=== PATIENT | female | born 1965 | race Caucasian/White ===

== ENCOUNTER → 2017-06-18 08:19 | Outpatient (CLI) | payer OTHER, SELFPAY ==
--- NOTE | 2017-06-18 08:18 | RAD_ITS ---
STUDY: X-RAY - LUMBOSACRAL SPINE REASON FOR EXAM: Female, 52 years old. Low back pain TECHNIQUE: 6 view(s) of the lumbosacral spine were obtained including flexion and extension. COMPARISON: 07/04/2016 FINDINGS: Normal lumbar lordosis. There is no substantial scoliosis. There is normal alignment of the vertebrae. With flexion and extension, there is adequate motion and no subluxations. Normal vertebral bodies and endplates. Stable moderate narrowing of the disc at L5-S1. All other levels unremarkable. Normal bilateral sacral ala, sacroiliac joints, and visualized sacrum. There is atherosclerotic calcification of the abdominal aorta without a demonstrated aneurysm. RAD/L/S Spine Comp/w Bending Views IMPRESSION: Stable degenerative changes of the disc at L5-S1. No acute abnormality. Electronically Signed: Emil Torres MD at 15:13 EDT , Service support ,
[2017-06-18 10:35] LABS: Erythrocyte Sedimentation Rate 12 mm/hr (0-30)
[2017-06-18 10:40] LABS: Hemoglobin A1c 6.5 % (4.2-6.3)
[2017-06-18 11:04] LABS: ALB/GLOB Ratio 1.1 RATIO (0.9-2.4); AST(SGOT) 14 U/L (15-37); Alanine Aminotransfer ALT/SGPT 25 U/L (13-56); Albumin, Serum 4.2 g/dL (3.2-5.0); Alkaline Phosphatase 95 U/L (45-117); Anion Gap 9 (5-15); BUN 12 mg/dL (7-18); BUN/Creat Ratio 15.4 RATIO (10-20); Calcium,Total 9.4 mg/dL (8.5-10.1); Chloride 105 mmol/L (98-107); Cholesterol 227 mg/dL (200); Creatinine, Serum 0.78 mg/dL (0.55-1.02); EST Glomerular Filtration Rate 82 mL/min (>60); Est Glom Filt Rate - Afr Amer 99 mL/min (>60); Globulin 3.7 g/dL (2.2-4.2); Glucose 131 mg/dL (74-106); High Density Lipoprotein 34 mg/dL; Potassium 4.1 mmol/L (3.5-5.1); Protein, Total 7.9 g/dL (6.4-8.2); Rheumatoid Factor < 10.0 IU/mL (<15); Sodium Level 141 mmol/L (136-145); Thyroid Stim Hormone (TSH) 1.63 uIU/mL (0.358-3.74); Triglycerides 237 mg/dL; Very Low Density Lipoprotein 47 mg/dL (5-40)
[2017-06-19 14:33] LABS: ANTINUCLEAR ANTIBODIES DIRECT Negative (Negative)
== END ==
PROVIDERS: Family Provider Family Medicine; PCP Family Medicine; Visit Provider Orthopaedic Surgery
DX: M54.5 Low back pain (principal); M25.40 Effusion, unspecified joint; R73.03 Prediabetes; E78.1 Pure hyperglyceridemia; R00.2 Palpitations
CPT/HCPCS: 36415; 72114; 80053; 80061; 83036; 84443; 85652; 86038; 86431

== ENCOUNTER → 2017-11-11 09:11 | Outpatient (CLI) | payer BC, SELFPAY ==
--- NOTE | 2017-11-11 09:15 | RAD_ITS ---
STUDY: X-RAY - PELVIS AND BILATERAL HIPS REASON FOR EXAM: Female, 52 years old. Bilateral hip pain, right side more severe than left. TECHNIQUE: Radiological exam, hip, bilateral, with pelvis when performed; 3-4 views COMPARISON: None. FINDINGS: There is a non-specific bowel gas pattern. Normal visualized soft tissue structures. Normal bilateral iliac wings, sacroiliac joints and visualized sacrum. Normal bilateral superior and inferior pubic rami. There are degenerative changes of the left pubic symphysis with sclerosis. Normal bilateral ischial tuberosities. Normal visualized right femoral head. Normal right acetabulum. Normal right hip joint. Normal visualized left femoral head. Normal left acetabulum. Normal left hip joint. RAD/Hips B/L min 2 views w/ Pelvis IMPRESSION: Mild degenerative changes of the left symphysis pubis. The left and right hips appear within normal limits. Electronically Signed: João Leonardo MD at 19:54 EDT , Service support ,
== END ==
PROVIDERS: Family Provider Family Medicine; PCP Family Medicine; Visit Provider Anesthesiology Pain Medicine
DX: M25.552 Pain in left hip (principal); M25.551 Pain in right hip
CPT/HCPCS: 73521

== ENCOUNTER → 2017-12-03 07:47 | Outpatient (CLI) | payer BC, SELFPAY ==
[2017-12-03 07:55] VITALS: PULSE 105; PULSE 108; PULSE 109; PULSE 111; PULSE 113; PULSE 114; PULSE 90; PULSE 91; O2SAT 96; O2SAT 97; O2SAT 98
--- NOTE | 2017-12-03 13:29 | PCM.PSN.6M ---
PSN 6 Minute Walk Test - 6 Minute Walk Test 6 Minute Walk Test: 6 Minute Walk Test PSN:6-Minute Walk Test Start: 12/03/17 08:09 Freq: Status: Active Protocol: [id number] Document 12/03/17 07:55 [facility] [place] (Rec: 12/03/17 08:14 [facility] [place] [id number]) 6 Minute Walk Test Date Performed 12/03/17 Time Performed 07:55 Height 5 ft Weight: 86.183 kg Weight in Pounds 190.[address]: Jonas Mccain Assistive device used: None Pre-test Oxygen Delivery Method Room Air Pulse Ox (%) 98 Pulse Rate (60-100 beats/min) 91 Dyspnea Jessica Scale (0-10) 1 Exertion Jessica Scale (6-20) 6 1st minute Oxygen Delivery Method Room Air Pulse Ox (%) 97 Pulse Rate (60-100 beats/min) 111 H Number of Rests Taken 0 2nd minute Oxygen Delivery Method Room Air Pulse Ox (%) 97 Pulse Rate (60-100 beats/min) 105 H Number of Rests Taken 0 3rd minute Oxygen Delivery Method Room Air Pulse Ox (%) 96 Pulse Rate (60-100 beats/min) 109 H Number of Rests Taken 0 4th minute Oxygen Delivery Method Room Air Pulse Ox (%) 96 Pulse Rate (60-100 beats/min) 113 H Number of Rests Taken 0 5th minute Oxygen Delivery Method Room Air Pulse Ox (%) 97 Pulse Rate (60-100 beats/min) 108 H Number of Rests Taken 0 6th minute Oxygen Delivery Method Room Air Pulse Ox (%) 96 Pulse Rate (60-100 beats/min) 114 H Number of Rests Taken 0 Post-test Oxygen Delivery Method Room Air Pulse Ox (%) 98 Pulse Rate (60-100 beats/min) 90 Dyspnea Jessica Scale (0-10) 2 Exertion Jessica Scale (6-20) 12 Number of Rests Taken 0 Full Laps Walked 20 Partial Lap, Number of Tiles Walked 40 Total Distance Walked (ft) 1220 - Interpretation Interpretation: The patient was able to ambulate 1220 feet over the course of 6 minutes on room air with no significant desaturation. Patient did have elevation in heart rate to as high as 114 bpm. These findings are consistent with deconditioning. - Recommendations Recommendations: No supplemental oxygen is indicated at this time.
== END ==
PROVIDERS: Family Provider Family Medicine; PCP Family Medicine; Visit Provider Internal Medicine Critical Care Medicine
DX: R06.09 Other forms of dyspnea (principal)
CPT/HCPCS: 94618

== ENCOUNTER → 2017-12-16 07:40 | Outpatient (CLI) | payer BC, SELFPAY ==
--- NOTE | 2017-12-16 13:13 | PFT ---
INTRODUCTION: The patient is a 52-year-old female that presents for pulmonary function testing secondary to a diagnosis of dyspnea on exertion. Respiratory therapy reports good patient effort. Bronchodilators were used during testing. INTERPRETATION: Forced expiration spirometry demonstrates no evidence of a large airways obstructive ventilatory defect. There was no significant response to aerosolized bronchodilators. Spirograms are of good quality and plateau normally. Body plethysmography was performed and reveals a normal TLC and RV. Diffusing capacity by single breath CO is mildly reduced at 63% of predicted. IMPRESSION: These pulmonary function studies demonstrate only the presence of a mild reduction in diffusing capacity. There are no previous pulmonary function studies available for comparison.
== END ==
PROVIDERS: Family Provider Family Medicine; PCP Family Medicine; Visit Provider Internal Medicine Critical Care Medicine
DX: R06.09 Other forms of dyspnea (principal)
CPT/HCPCS: 94060; 94726; 94729

== ENCOUNTER → 2017-12-18 06:51 | Outpatient (CLI) | payer BC, SELFPAY ==
--- NOTE | 2017-12-18 06:53 | CT_ITS ---
STUDY: LOW DOSE CT LUNG CANCER SCREENING REASON FOR EXAM: Female, 52 years old. Wheezing. RADIATION DOSAGE (If Supplied By Facility): CTDIvol = ( 3.02 ) mGy, DLP = ( 93.27 ) mGycm TECHNIQUE: No contrast was administered. Low dose technique was utilized (average mAS-38 and kVp 120). 1.25 mm axial source images with a slice interval of 1.25-mm were reconstructed in lung windows. 2.5 mm axial source images with a slice interval of 2.5-mm were reconstructed in lung windows. 5.0 mm axial source images with a slice interval of 5.0-mm were reconstructed in soft tissue windows. Nodule measured using lung windows on PACS and/or independent workstation with automated measurement of minimum and maximum diameter. Nodule measurement reported as average diameter rounded to the nearest whole number. Growth is defined as an increase ins size of greater than 1.5 mm. COMPARISON: None. NODULES: No nodules are seen. Minimal increased linear markings in the anterior aspect of the left lower lobe suggestive of linear atelectasis and/or focal linear scarring. Aorta: Unremarkable. Coronary arteries: Coronary artery calcification. Mediastinal nodes: Scattered benign-appearing mediastinal lymph nodes. Other chest and abdominal findings: Multilevel disc space narrowing and spondylosis of the thoracic spine this is worse in the mid dorsal spine with subchondral sclerosis. CT/Low Dose CT Lung Screening IMPRESSION: Lung-RADS category 1 - Continue annual screening with LDCT in 12 months. IMPORTANT NOTES FOR USE: ACR Lung-RADS Version 1.0 Assessment Categories Release Date: August 03, 2013 Category: Coded 0-4 bases on nodule(s) with highest degree of suspicion. Negative screen is defined as categories 1 and 2; a positive screen is defined as categories 3 and 4. Category 3 and 4A nodules that are unchanged on interval CT should be coded as category 2, and individuals returned to screening in 12 months. Category 4X: Category 3 or 4 nodules with additional imaging findings that increase the suspicion of lung cancer, such as spiculation, GGN that doubles in size in 1 year, enlarged lymph notes, etc. Category Modifiers: S (significant finding unrelated to lung cancer) and C (prior history of treated lung cancer) may be added to the 0-4 Lung-RADS Electronically Signed: Leo Morse MD at 9:11 EDT Tel [phone], Service support ,
== END ==
PROVIDERS: Family Provider Family Medicine; PCP Family Medicine; Visit Provider Internal Medicine Critical Care Medicine
DX: R06.09 Other forms of dyspnea (principal); Z72.0 Tobacco use; Z12.2 Encounter for screening for malignant neoplasm of respiratory organs; Z87.891 Personal history of nicotine dependence
CPT/HCPCS: G0297

== ENCOUNTER → 2017-12-18 20:22 | Outpatient (CLI) | payer BC, SELFPAY | PROVIDERS: Family Provider Family Medicine; PCP Family Medicine; Visit Provider Internal Medicine Critical Care Medicine | DX: G47.33 Obstructive sleep apnea (adult) (pediatric) (principal) | CPT/HCPCS: 95811 ==

== ENCOUNTER → 2018-06-03 13:00 | Outpatient (CLI) | payer BC, SELFPAY ==
[2018-05-22 13:03] VITALS: BMI 33.4
== END ==
PROVIDERS: Family Provider Family Medicine; PCP Family Medicine; Referring Provider Internal Medicine Critical Care Medicine; Visit Provider Internal Medicine Critical Care Medicine
DX: G47.33 Obstructive sleep apnea (adult) (pediatric) (principal)
CPT/HCPCS: 98960; G0463

== ENCOUNTER → 2018-08-08 | Outpatient (CLI) | payer BC, SELFPAY ==
[2018-05-22 13:03] VITALS: BMI 33.4
== END | disposition home or self-care (01) ==
LOC: SL 13:10
PROVIDERS: Family Provider Family Medicine; PCP Family Medicine; Visit Provider Nurse Practitioner Acute Care
DX: G47.33 Obstructive sleep apnea (adult) (pediatric) (principal)

== ENCOUNTER 2018-08-10 12:15 | Emergency (ER) | payer BC, SELFPAY ==
[2018-05-22 13:03] VITALS: BMI 33.4
[2018-08-10 12:16] VITALS: BP 142/90; PULSE 101; RESP 19; TEMP 36.4; O2SAT 97; BMI 36.1
--- NOTE | 2018-08-10 12:46 | RAD_ITS ---
STUDY: X-RAY - RIGHT FOOT CLINICAL: Female, 53 years old. Painful heel. TECHNIQUE: 3 view(s) of the foot. COMPARISON: None. FINDINGS: Normal talus, calcaneus, and tarsal bones. Normal visualized subtalar, talonavicular, calcaneocuboid, tarsal and tarsometatarsal articulations. Normal metatarsi. There is mild degenerative arthrosis of the metatarsophalangeal joint of the hallux . Normal tibial and fibular sesamoid bones. Normal interphalangeal joint of the great toe. Normal phalanges of the great toe. Normal second through fifth metatarsophalangeal joints. Normal interphalangeal joints and phalanges of the lesser toes. The soft tissue structures are unremarkable. There is no demonstrated fracture. RAD/Foot min 3 Views IMPRESSION: Mild degenerative arthrosis. No demonstrated acute osseous changes. Electronically Signed: Alphonso Braswell MD at 13:24 EDT Tel , Service support ,
--- NOTE | 2018-08-10 12:47 | ED.VISSUMM ---
- ER Visit Summary Date of Service: 08/10/18 Chief Complaint: Right heel pain History of Present Illness: The patient is a 53 F history of chronic back pain under pain management. Also diabetic and hypertensive. Patient states she fell down a wheelchair ramp about 3 weeks ago. Had a recent pain injection in her lower back. Since her last 3 days she has had right heel pain. No prior foot surgery. Physical Examination: Well-appearing middle-aged female. Vital signs are stable afebrile. No distress. H EENT exam unremarkable. Atraumatic. C-spine nontender. Trachea midline. Lungs clear to auscultation bilaterally. Heart regular rhythm no murmur. Abdomen soft nontender normal bowel sounds no peritoneal signs. Extremities moves all 4. Neurovascularly intact. Is a small bruise on the inferior aspect medially of her right knee but has full flexion-extension of her right hip, right knee and right ankle. Dorsi plantar flexion intact. Achilles tendon intact. There is no effusion or swelling of the right knee. Ligaments are intact including the ACL and PCL. Also the MCL and LCL. She has normal DP pulse. She is able to wiggle all digits in her right foot. Normal cap refill. Normal touch sensation. No gross bony deformity. She has tenderness with squeezing of her heel. There is no redness or warmth. No bruising or swelling. Right foot is completely neurovascular intact. Lower extremities unremarkable. Neurologically she is awake and alert with no focal motor deficits. Test Results: Right foot x-ray 3 views was obtained shows shows no acute abnormality. Read by myself. No bony abnormality noted. No fracture or dislocation. Emergency Department Course and Treatment: Repeat exam unchanged. Treatment Plan: Ice to her heel. Tylenol Motrin for pain. Follow-up if not improving. Disposition: Discharge Impression: Acute right heel pain of uncertain etiology Status post fall Chronic pain management This note was generated with [employer] dictation software. It may contain incorrect words, spelling, and punctuation that were not noted in review of the chart prior to signing ED Disposition - Plan for ED Patient: Referrals: Darby Rivera [Primary Care Provider] -
--- NOTE | 2018-08-10 12:52 | ED.DCSUM_ITS ---
- ER Visit Summary Date of Service: 08/10/18 Chief Complaint: Right heel pain History of Present Illness: The patient is a 53 F history of chronic back pain under pain management. Also diabetic and hypertensive. Patient states she fell down a wheelchair ramp about 3 weeks ago. Had a recent pain injection in her lower back. Since her last 3 days she has had right heel pain. No prior foot surgery. Physical Examination: Well-appearing middle-aged female. Vital signs are stable afebrile. No distress. H EENT exam unremarkable. Atraumatic. C-spine nontender. Trachea midline. Lungs clear to auscultation bilaterally. Heart regular rhythm no murmur. Abdomen soft nontender normal bowel sounds no peritoneal signs. Extremities moves all 4. Neurovascularly intact. Is a small bruise on the inferior aspect medially of her right knee but has full flexion- extension of her right hip, right knee and right ankle. Dorsi plantar flexion intact. Achilles tendon intact. There is no effusion or swelling of the right knee. Ligaments are intact including the ACL and PCL. Also the MCL and LCL. She has normal DP pulse. She is able to wiggle all digits in her right foot. Normal cap refill. Normal touch sensation. No gross bony deformity. She has tenderness with squeezing of her heel. There is no redness or warmth. No bruising or swelling. Right foot is completely neurovascular intact. Lower extremities unremarkable. Neurologically she is awake and alert with no focal motor deficits. Test Results: Right foot x-ray 3 views was obtained shows shows no acute abnormality. Read by myself. No bony abnormality noted. No fracture or disloc ation. Emergency Department Course and Treatment: Repeat exam unchanged. Treatment Plan: Ice to her heel. Tylenol Motrin for pain. Follow-up if not improving. Disposition: Discharge Impression: Acute right heel pain of uncertain etiology Status post fall Chronic pain management This note was generated with [employer] dictation software. It may contain incorrect words, spelling, and punctuation that were not noted in review of the chart prior to signing ED Disposition - Plan for ED Patient: Referrals: Darby Rivera [Primary Care Provider] -
--- NOTE | 2018-08-10 13:15 | ED.DEP ---
ED Disposition - Plan for ED Patient: Disposition: Home or Assisted Living Instructions: ED Sprain Foot Referrals: Darby Rivera [Primary Care Provider] - 1 Week if not improving Additional Instructions: Ice to heal. Motrin and Tylenol for pain. Follow-up with your doctor if not improving. Your x-ray today was unremarkable.
== END 2018-08-10 13:31 | disposition home or self-care (01) ==
PROVIDERS: Emergency Provider Emergency Medicine; Family Provider Family Medicine; PCP Family Medicine
DX: M79.671 Pain in right foot (principal); G89.29 Other chronic pain; M54.9 Dorsalgia, unspecified; E11.9 Type 2 diabetes mellitus without complications; I10 Essential (primary) hypertension; Z72.0 Tobacco use; W10.2XXA Fall (on)(from) incline, initial encounter; Y93.01 Activity, walking, marching and hiking; Y92.89 Other specified places as the place of occurrence of the external cause; Y99.8 Other external cause status
CPT/HCPCS: 73630; 99283

== ENCOUNTER → 2018-09-23 | Outpatient (CLI) | payer BC, SELFPAY ==
--- NOTE | 2018-09-23 17:15 | RAD_ITS ---
HISTORY: fall couple months ago, right hip pain AP pelvis. 2 views of the right hip. Findings: Bilateral hip arthritis is mild with joint space narrowing. Cortices are intact. Bowel gas pattern is normal. Right hemipelvic phlebolith. No fractures. No dislocations. RAD/HIP, UNI W/ Pelvis 2-3 Views IMPRESSION: Mild bilateral hip arthritis. at 0234 Reported and signed by: Isauro Perry MD Electronically Signed: Isauro Perry MD at 2:33 EDT Tel , Service support ,
== END | disposition home or self-care (01) ==
LOC: RAD 17:09
PROVIDERS: Family Provider Family Medicine; PCP Family Medicine; Referring Provider Anesthesiology Pain Medicine; Visit Provider Anesthesiology Pain Medicine
DX: M25.551 Pain in right hip (principal)
CPT/HCPCS: 73502

== ENCOUNTER → 2019-02-04 | Outpatient (CLI) | payer BC, SELFPAY ==
[2018-11-17 13:25] VITALS: BMI 36.1
--- NOTE | 2019-02-04 14:33 | BI_ITS ---
MAMMOGRAPHY - BILATERAL SCREENING REASON FOR EXAM: Female, 53 years old. Routine annual screening examination. PERTINENT HISTORY: Aunt with breast cancer. Remote right excisional breast biopsies. TECHNIQUE: Digital bilateral breast rolf (3D mammographic acquisition) in the CC and MLO projections. 2-D mediolateral oblique (MLO) and craniocaudad (CC) views of both breasts were obtained. CAD: Full Field Digital Mammography with Computer Added Detection was performed. COMPARISON: Comparison is made with prior examination of August 27, 2016 and May 27, 2015. FINDINGS: Breast Composition: The breasts are almost entirely fatty. There are no dominant masses or suspicious calcifications. Stable small benign-appearing bilateral axillary lymph nodes. No other significant abnormalities are identified. There has been no significant change since the prior study. BI/SCREEN MAMM (CAD) W/ROLF BILAT IMPRESSION: Stable bilateral screening mammogram. Yearly follow-up mammogram recommended. (A) ASSESSMENT CATEGORY: BIRADS Category 2: Benign. A letter regarding these results will be sent to the patient by the facility within 30 days. Approximately 10% of breast cancers are not detected by mammography. A normal mammogram should not delay biopsy of a clinically suspicious abnormality. [id number] Electronically Signed: Leo Morse, at 15:38 EDT , Service support ,
== END | disposition home or self-care (01) ==
PROVIDERS: Family Provider Family Medicine; PCP Family Medicine; Referring Provider Family Medicine; Visit Provider Family Medicine
DX: Z12.31 Encounter for screening mammogram for malignant neoplasm of breast (principal)
CPT/HCPCS: 77063; 77067

== ENCOUNTER → 2019-11-10 07:08 | Outpatient (CLI) | payer BC, SELFPAY ==
[2019-11-02 08:27] VITALS: BMI 34.2
--- NOTE | 2019-11-10 07:11 | CT_ITS ---
STUDY: LOW DOSE CT LUNG CANCER SCREENING REASON FOR EXAM: Female, 54 years old. TOBACCO ABUSE, LUNG SCREEN, 1/2 PPD X 40+ YRS RADIATION DOSAGE (If Supplied By Facility): CTDIvol = ( 3.02 ) mGy, DLP = ( 95.15 ) mGycm TECHNIQUE: No contrast was administered. Low dose technique was utilized (average mAS-38 and kVp 120). 1.25 mm axial source images with a slice interval of 1.25-mm were reconstructed in lung windows. 2.5 mm axial source images with a slice interval of 2.5-mm were reconstructed in lung windows. 5.0 mm axial source images with a slice interval of 5.0-mm were reconstructed in soft tissue windows. Nodule measured using lung windows on PACS and/or independent workstation with automated measurement of minimum and maximum diameter. Nodule measurement reported as average diameter rounded to the nearest whole number. Growth is defined as an increase ins size of greater than 1.5 mm. COMPARISON: Comparison is made with prior study dated 12/18/2017. NODULES: There is a 2.1 mm noncalcified nodule in the anterior aspect of the left upper lobe as seen on axial image #68. A 1.5 mm noncalcified nodule is also seen along the anterior aspect of the left upper lobe as seen on axial image #84. Emphysema: Endobronchial lesion: Aorta: Minimal calcific plaque at the level of the aortic arch. Coronary arteries: Coronary artery calcification. Mediastinal nodes: Scattered small benign-appearing mediastinal lymph nodes. Other chest and abdominal findings: Degenerative changes of the thoracic and lumbar spine. CT/Low Dose CT Lung Screening IMPRESSION: Lung-RADS category 2 - Continue annual screening with LDCT in 12 months. IMPORTANT NOTES FOR USE: ACR Lung-RADS Version 1.0 Assessment Categories Release Date: August 03, 2013 Category: Coded 0-4 bases on nodule(s) with highest degree of suspicion. Negative screen is defined as categories 1 and 2; a positive screen is defined as categories 3 and 4. Category 3 and 4A nodules that are unchanged on interval CT should be coded as category 2, and individuals returned to screening in 12 months. Category 4X: Category 3 or 4 nodules with additional imaging findings that increase the suspicion of lung cancer, such as spiculation, GGN that doubles in size in 1 year, enlarged lymph notes, etc. Category Modifiers: S (significant finding unrelated to lung cancer) and C (prior history of treated lung cancer) may be added to the 0-4 Lung-RADS Electronically Signed: Leo Morse, at 8:44 EDT , Service support ,
== END ==
PROVIDERS: PCP Family Medicine; Referring Provider Nurse Practitioner Acute Care; Visit Provider Nurse Practitioner Acute Care
DX: F17.210 Nicotine dependence, cigarettes, uncomplicated (principal)
CPT/HCPCS: G0297

== ENCOUNTER → 2019-11-12 07:08 | Outpatient (CLI) | payer BC, SELFPAY ==
[2019-11-02 08:27] VITALS: BMI 34.2
--- NOTE | 2019-11-12 15:22 | PFTCOMP ---
COMPLETE PULMONARY FUNCTION TEST INTERPRETATION Brief HPI: Patient is a 54 year old female, currently under the care of Darby Real, who presents to [facility] for complete pulmonary function tests secondary to diagnosis of dyspnea. Respiratory therapist reports good effort and reproducible results. Interpretation: Forced expiration spirometry shows no large airways obstructive ventilatory defect with an FEV1 of 89% predicted. There is no significant bronchodilator response by strict ATS criteria. Spirograms are of good quality and plateau slowly, indicating slowly emptying areas of the lungs. The respiratory flow volume loop shows decreased expiratory flow rates at high lung volumes consistent with small airways obstruction. Lung volumes by body plethysmography show a normal total lung capacity at 4.84 L, 117% predicted. All other lung volumes are within normal limits. Diffusion capacity by carbon monoxide is decreased at 58% predicted. The airway resistance is normal. Compared to previous pulmonary function tests from 12/16/2017, there has been significant worsening in spirometry and DLCO. Impression: Isolated reduction diffusion capacity consistent with a pulmonary vascular disorder. There has been worsening compared to 2018.
== END ==
LOC: PSN 07:11
PROVIDERS: PCP Family Medicine; Referring Provider Nurse Practitioner Acute Care; Visit Provider Nurse Practitioner Acute Care
DX: R06.09 Other forms of dyspnea (principal)
CPT/HCPCS: 94060; 94726; 94729

== ENCOUNTER 2021-07-06 13:35 | Outpatient (CLI) | payer OTHER, SELFPAY ==
--- NOTE | 2021-07-06 13:45 | RAD_ITS ---
STUDY: X-RAY - LUMBAR SPINE REASON FOR EXAM: Female, 56 years old. Radiating low back pain TECHNIQUE: 3 view(s) of the lumbar spine were obtained. COMPARISON: None FINDINGS: Normal lumbar lordosis. There is no substantial scoliosis. There is a normal alignment of the vertebrae from L1 to L5. There is a grade 1 spondylolisthesis at L5/S1.. There is multilevel endplate spondylosis of the lumbar vertebrae. Mild disc space narrowing throughout the lumbar spine. There is no demonstrated fracture. There is atherosclerotic calcification of the abdominal aorta without a demonstrated aneurysm. RAD/Lumbar Spine 2 or 3 Views IMPRESSION: Degenerative changes of the spine, as detailed above. Electronically Signed: Emory Jiménez MD at 17:07 EDT ,
== END 2021-07-06 23:59 | disposition home or self-care (01) ==
LOC: RAD 13:39
PROVIDERS: PCP Student in an Organized Health Care Education/Training Program; Referring Provider Anesthesiology Pain Medicine; Visit Provider Anesthesiology Pain Medicine
DX: M54.16 Radiculopathy, lumbar region (principal)
CPT/HCPCS: 72100

== ENCOUNTER → 2021-09-14 | Outpatient (CLI) | payer OTHER, SELFPAY ==
--- NOTE | 2021-09-14 12:16 | MRI_ITS ---
STUDY: MR Spine Lumbar W/O Contrast 09/14/2021 4:39 PM REASON FOR EXAM: Female, 56 years old. Back pain RT LEG WEAKNESS TECHNIQUE: MR Spine Lumbar W/O Contrast Standardized fat and water weighted pulse sequences were obtained. COMPARISON: Aug 16 2016 7:54am FINDINGS: T12-L1: Normal endplates. Normal disc height, hydration and morphology. Normal bilateral facet joints. Normal central canal and bilateral lateral recesses. Normal bilateral intervertebral neural foramina. Normal lumbar lordosis. There is no substantial scoliosis. Normal conus medullaris that terminates at the L1. L1-2: Loss of intervertebral disc height. There is endplate spondylosis of the vertebral body. There is bilateral facet arthropathy. Central disc herniation measuring 3mm. Discogenic endplate changes. L2-3: Normal endplates. Normal disc height, hydration and morphology. Normal bilateral facet joints. Normal central canal and bilateral lateral recesses. Normal bilateral intervertebral neural foramina. L3-4: Normal endplates. Normal disc height, hydration and morphology. Normal bilateral facet joints. Normal central canal and bilateral lateral recesses. Normal bilateral intervertebral neural foramina. L4-5: Loss of intervertebral disc height. There is endplate spondylosis of the vertebral body. There is bilateral facet arthropathy. Right disc herniation extends into the right neural foramina causing right foraminal stenosis. Compression of exiting nerve root on the right. L5-S1: Loss of intervertebral disc height. There is endplate spondylosis of the vertebral body. There is bilateral facet arthropathy. Bilateral neural foraminal stenosis. Compression of exiting nerve roots. Central disc herniation. Normal visualized sacral ala. MRI/Spine Lumbar (Routine) IMPRESSION: Multilevel degenerative changes, as described above. L1-2: Central disc herniation measuring 3mm. This is new. L5-S1: Bilateral neural foraminal stenosis. Compression of exiting nerve roots. Central disc herniation. L4-5: Right disc herniation extends into the right neural foramina causing right foraminal stenosis. Compression of exiting nerve root on the right. Electronically Signed: Rene eHrnandez MD at 16:45 EDT ,
== END | disposition home or self-care (01) ==
LOC: MRI 11:59
PROVIDERS: PCP Student in an Organized Health Care Education/Training Program; Referring Provider Anesthesiology Pain Medicine; Visit Provider Anesthesiology Pain Medicine
DX: R53.1 Weakness (principal)
CPT/HCPCS: 72148

== ENCOUNTER 2021-09-15 07:30 | Outpatient (RCR) | payer OTHER, SELFPAY ==
--- NOTE | 2021-08-18 08:19 | HP.PTEVAL_ITS ---
Patient's Visit Information LUIS SIDDIQUI is a 56 year old F referred to Physical Therapy by Dr. Erica Lemons MD with a diagnosis of RADICULOPATHY ,LUMBAR. Date of Evaluation: 08/18/21 Physical Therapist: Khoa Granda, PT, Cert MDT, OCS - Visit Plan Frequency: 2x /Week Duration: 4 Weeks Plan: PT INTERVETIONS MODALTIES FOR PAIN PROGRESS TO GRADED DLS ,POSTURAL EX'S AND LUMBAR ROM AND ACTIVITY MODIFICATION/TRAINING - Subjective This 56 y/o female presents to physical therapy with lumbar radiculopathy. Patient has had lumbar pain many years ,but had a episode for lumbar radiculopathy. In April patient had episode sliding on ice which aggravated symptoms. Seen Family ,seen chiropractor ,then seen DR Maldonado had epidural injection which helped sciatica pain but continues to have lateral hip pain. Dr wanted to do MRI but need PT . Located right lumbar lateral hip ,thigh to knee . Described as a ache/sharp . Patient has paresthesia/tingling in leg right. Aggravating factors bending ,lifting ,carrying ,walking and sitting. Alleviating factors none. MEDS- Mobic. Coughing/sneezing +. Bowel/bladder -. Patient has difficulty sleeping. Patient does have lumbar radiculopathy. Patient has had prior epidural injection 20 years. Patient has had no recent MRI . Last MRI over 10 years ago. Patient pain affects QOL and function. Patient is on heart monitor due to heart palpations/arrhythmia. SOCIAL: . 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 GAIT: reciprocal pattern. PALPTION: tender SI /LS right. SYMMTRIES: align. FLEXABILITY: hamstrings min tight. LUMBAR ROM: flexion min loss, extension min loss, side bending min loss. MMT: quads/hams 4/5,hip flexion 4-/5,ankle 5/5 - Special Tests Lumbar Standing: Flexion - Mechanical Response: No effect Lumbar Standing: Flexion - Symptoms During Testing: Increases Lumbar Standing: Flexion - Symptoms After Testing: No worse Lumbar Standing: Extension - Mechanical Response: No effect Lumbar Standing: Extension - Symptoms During Testing: Increases Lumbar Standing: Extension - Symptoms After Testing: No worse Lumbar Standing: Right Side Glides - Mechanical Response: No effect Lumbar Standing: Right Side [place] - Symptoms During Testing: No effect Lumbar Standing: Right Side [place] - Symptoms After Testing: No effect Lumbar Standing: Left Side [place] - Mechanical Response: No effect Lumbar Standing: Left Side [place] - Symptoms During Testing: No effect Lumbar Standing: Left Side [place] - Symptoms After Testing: No effect - Balance/Special Test Scores Oswestry Low Back Score: 28 - Goals Goal 1:: I with HEP FOR BACK Goal Time Frame: 4-6 Weeks Goal 2:: Patient to demonstrate 50% improvement with function and less back pain Goal Time Frame: 4-6 Weeks Goal 3:: Patient to improve lumbar ROM for 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 Goal Time Frame: 4-6 Weeks Goal 4:: Patient to improve back oswestry by 5 points to improve function Goal Time Frame: 4-6 Weeks Goal 5:: Patient to return to prior level of function with min limitations Goal Time Frame: 4-6 Weeks - Rehabilitation Potential Physical Therapy Diagnosis: This patient has lumbar radiculopathy with pain with positioning, motion testing , pain with general activity bending walking and standing which was a result on slipping on ice in Apr thus will need skilled PT Rehabilitation Potential: Good - Anticipated Interventions Patient/Client Instruction: Educate patient on: Condition, Plan of Care For the Purpose of:: To decrease pain, To increase ROM, To improve muscle performance and motor function, To improve ability to perform ADL's, To increase tolerance to activity/condition/position, To improve ability of physical actions for home/community/work/leisure, To improve health of tissue, To decrease soft tissue restriction, To increase flexibility/ROM, To prevent re-injury Therapeutic Exercise to Include: Strength training, Body mechanics, Postural training, Flexibilty training, Active ROM, Dynamic Lumbar Stabilization For the Purpose of:: To decrease pain, To increase ROM, To improve muscle performance and motor function, To improve ability to perform ADL's, To increase tolerance to activity/condition/position, To improve ability of physical actions for home/community/work/leisure, To improve health of tissue, To decrease soft tissue restriction, To increase flexibility/ROM, To prevent re-injury TENS: Yes IF ES: Yes Thermo therapy (hot pack): Yes Ultrasound (thermal/non thermal): Yes For the Purpose of:: To decrease pain, To increase ROM, To improve nutrient delivery to tissue, To increase oxygenation perfusion, To improve health of tissue, To decrease soft tissue restriction Thank you for the opportunity to evaluate your patient. For Medicare and Medicare HMO plans, please review the plan of care and approve it. It will need to be FAXED BACK to us at [phone] for Medicare purposes. For Medicare only, by signing this I certify the plan of care. Please let me know if there are questions or concerns regarding this plan of care. Physician Signatur e: Date:
--- NOTE | 2022-02-07 10:37 | HP.PTDCSUM ---
It has been my pleasure to treat LUIS SIDDIQUI referred by Dr. Erica Lemons MD, with the diagnosis of RADICULOPATHY ,LUMBAR for a total of 9 visit(s). Discharge Date: Please see the following information for a summary of their discharge status. Subjective: Patient had MRI multiple HNP in lumbar. Get back to DR Lemus for injecyions Right Back Pain Intensity (Out of 10): 6 Right Hip Pain Intensity (Out of 10): 5 % Improvement: 40 Objective/Function: POSTURE: mild forward. GAIT: reciprocal pattern. MMT: quads/hams/hip 4/5,4/5. 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 Thank you for the referral of this patient. Sincerely, Khoa Granda, PT, Cert MDT, OCS Balance/Gait/Functional tests - Balance/Special Test Scores Oswestry Low Back Score: 10
== END 2021-09-15 19:00 | disposition home or self-care (01) ==
LOC: PT 07:30
PROVIDERS: PCP Student in an Organized Health Care Education/Training Program; Referring Provider Anesthesiology Pain Medicine; Visit Provider Anesthesiology Pain Medicine
DX: M54.16 Radiculopathy, lumbar region (principal)
CPT/HCPCS: 97014; 97110; 97162; G0283

== ENCOUNTER → 2021-12-28 | Outpatient (CLI) | payer OTHER, SELFPAY ==
[2021-12-28 17:23] LABS: Amphetamine Urine VISTA NEGATIVE (<1000 ng/mL); Barbiturate Urine VISTA NEGATIVE (< 200 ng/mL); Benzodiazepine Urine VISTA NEGATIVE (< 200 ng/mL); Cocaine Urine VISTA NEGATIVE (< 300 ng/mL); Ecstacy Urine VISTA NEGATIVE (< 500 ng/mL); Methadone Urine VISTA NEGATIVE (< 300 ng/mL); PCP Urine VISTA NEGATIVE (< 25 ng/mL); THC Urine VISTA NEGATIVE (< 50 ng/mL); Vista UDS pH Range 6
== END | disposition home or self-care (01) ==
PROVIDERS: PCP Student in an Organized Health Care Education/Training Program; Referring Provider Anesthesiology Pain Medicine; Visit Provider Anesthesiology Pain Medicine
DX: F11.20 Opioid dependence, uncomplicated (principal)
CPT/HCPCS: 80307

== ENCOUNTER → 2022-02-14 | Outpatient (CLI) | payer OTHER, SELFPAY ==
[2022-02-14 10:38] LABS: Amphetamine Urine VISTA NEGATIVE (<1000 ng/mL); Barbiturate Urine VISTA NEGATIVE (< 200 ng/mL); Benzodiazepine Urine VISTA NEGATIVE (< 200 ng/mL); Cocaine Urine VISTA NEGATIVE (< 300 ng/mL); Ecstacy Urine VISTA NEGATIVE (< 500 ng/mL); Methadone Urine VISTA NEGATIVE (< 300 ng/mL); PCP Urine VISTA NEGATIVE (< 25 ng/mL); THC Urine VISTA NEGATIVE (< 50 ng/mL); Vista UDS pH Range 7
== END | disposition home or self-care (01) ==
PROVIDERS: PCP Student in an Organized Health Care Education/Training Program; Referring Provider Anesthesiology Pain Medicine; Visit Provider Anesthesiology Pain Medicine
DX: F11.20 Opioid dependence, uncomplicated (principal)
CPT/HCPCS: 80307

== ENCOUNTER → 2022-05-01 | Outpatient (CLI) | payer OTHER, SELFPAY ==
--- NOTE | 2022-05-01 10:17 | RAD_ITS ---
STUDY: X-RAY - CERVICAL SPINE REASON FOR EXAM: Female, 57 years old. NECK PAIN TECHNIQUE: 3 view(s) of the cervical spine were obtained. COMPARISON: None FINDINGS: Normal anterior atlantoaxial articulation. Normal odontoid process. Normal cervical lordosis. There is chronic wedging of C3 vertebral body.. There is narrowing at C3-4 and C4-5 disc spaces with endplate spurring.. The soft tissue structures are unremarkable. RAD/Cerv Spine 2 or 3 Views IMPRESSION: Mild spondylosis. No acute fracture or other significant bony pathology. Electronically Signed: Peter Camargo MD at 21:21 EST ,
--- NOTE | 2022-05-01 10:17 | RAD_ITS ---
STUDY: X-RAY - LUMBAR SPINE REASON FOR EXAM: Female, 57 years old. BACK PAIN TECHNIQUE: 3 view(s) of the lumbar spine were obtained. COMPARISON: None FINDINGS: Normal lumbar lordosis. Mild scoliosis or splinting secondary to muscle spasm.. Grade 1 spondylolisthesis at L5-S1. Mildly narrowed disc spaces at L1-2 and L2-3 with endplate spurring.. Surgical clips are seen in the right upper quadrant. Calcification of the aorta without evidence for aneurysm RAD/Lumbar Spine 2 or 3 Views IMPRESSION: Mild spondylosis and degenerative changes. No acute fracture or other significant bony pathology Electronically Signed: Peter Camargo MD at 21:42 EST ,
== END | disposition home or self-care (01) ==
LOC: RAD 10:13
PROVIDERS: PCP Student in an Organized Health Care Education/Training Program; Referring Provider Anesthesiology Pain Medicine; Visit Provider Anesthesiology Pain Medicine
DX: M50.30 Other cervical disc degeneration, unspecified cervical region (principal); M47.812 Spondylosis without myelopathy or radiculopathy, cervical region; M51.34 Other intervertebral disc degeneration, thoracic region
CPT/HCPCS: 72040; 72100

== ENCOUNTER → 2023-08-16 | Outpatient (CLI) | payer OTHER, SELFPAY ==
[2023-08-16 12:52] LABS: Erythrocyte Sedimentation Rate 3 mm/hr (0-30)
[2023-08-16 12:55] LABS: Absolute Lymphocyte Count 2.92 X10^3/uL (0.83-4.51); Absolute Neutrophil Count 5.6 X10^3/uL (2.0-7.7); Basophil# 0.06 X10^3/uL; Basophil% 0.6 % (0-1); Eosinophil# 0.14 X10^3/uL; Eosinophils% 1.5 % (0-5); Hematocrit 53.8 % (37-47); Hemoglobin 16.6 g/dL (12.0-15.0); Lymphocyte # 2.92 X10^3/ul (0.83-4.51); Lymphocyte % 30.6 % (19-41); Mean Corp Hgb Conc 30.9 g/dL (32-36); Mean Corpuscular Hgb 32.7 pg (27.0-32.0); Mean Corpuscular Volume 105.9 fL (81-99); Mean Platelet Vol. 8.6 fl (6.2-12.0); Monocyte# 0.75 X10^3/uL; Monocyte% 7.9 % (0-10); NRBC Flagged by Analyzer 0 % (0-5); Neutrophil # 5.63 X10^3/uL (2.7-7.7); Neutrophil % 58.9 % (47-70); Platelet Count 358 K/mm3 (150-450); RBC Distribution Width CV 12.8 % (11.6-14.6); RBC Distribution Width SD 50.6 fl (35.1-43.9); Red Blood Count 5.08 M/mm3 (4.2-5.4); White Blood Count 9.6 K/mm3 (4.4-11.0)
[2023-08-16 13:24] LABS: ALB/GLOB Ratio 1.2 RATIO (0.9-2.4); AST(SGOT) 12 U/L (15-37); Alanine Aminotransfer ALT/SGPT 28 U/L (13-56); Albumin, Serum 4.1 g/dL (3.2-5.0); Alkaline Phosphatase 102 U/L (45-117); Anion Gap 6 (5-15); BUN 13 mg/dL (7-18); CRP 5.16 mg/L (0.0-3.0); Calcium,Total 9.5 mg/dL (8.5-10.1); Chloride 107 mmol/L (98-107); Creatinine, Serum 0.72 mg/dL (0.55-1.02); EST Glomerular Filtration Rate 87 mL/min (>60); Est Glom Filt Rate - Afr Amer 106 mL/min (>60); Globulin 3.5 g/dL (2.2-4.2); Glucose 140 mg/dL (74-106); Potassium 3.9 mmol/L (3.5-5.1); Protein, Total 7.6 g/dL (6.4-8.2); Rheumatoid Factor < 10.0 IU/mL (<15); Sodium Level 140 mmol/L (136-145)
[2023-08-16 14:04] LABS: Hepatitis B Surface Antibody Reactive; Hepatitis B Surface Antigen Non-Reactive (Nonreactive); Hepatitis C Antibody Non-Reactive (Nonreactive)
[2023-08-17 16:08] LABS: CCP IgG Antibodies 5 units (0-19)
== END | disposition home or self-care (01) ==
LOC: MTLAB 10:03
PROVIDERS: PCP Student in an Organized Health Care Education/Training Program; Referring Provider Internal Medicine Rheumatology; Visit Provider Internal Medicine Rheumatology
DX: M06.4 Inflammatory polyarthropathy (principal); M79.7 Fibromyalgia
CPT/HCPCS: 36415; 80053; 85025; 85652; 86140; 86200; 86431; 86706; 86803; 87340

== ENCOUNTER → 2023-08-29 | Outpatient (CLI) | payer OTHER, SELFPAY ==
--- NOTE | 2023-08-29 13:03 | CDU_ITS ---
Reason For Study: carotid stenosis Rt. Velocities/BP Lt. Velocities/BP Prox CCA 79.6/18.2 cm/sec. Prox CCA 99.8/16.3 cm/sec. Mid CCA 80.6/26.7 cm/sec. Mid CCA 77.7/15.1 cm/sec. Dist CCA 80.6/25.8 cm/sec. Dist CCA 56.9/11.4 cm/sec. Prox ICA 132.1/44.4 cm/sec. Prox ECA 90.0/13.9 cm/sec. Mid ICA 83.9/28.6 cm/sec. Lt. Vert. 38.4/16.3 cm/sec. Dist ICA 83.9/40.9 cm/sec. Rt. ICA/CCA = 1.6. Prox ECA 80.6/11.6 cm/sec. Rt. Vert. 69.1/27.4 cm/sec. Right Extracranial There is intimal thickening but no significant atherosclerotic plaque noted in the right common carotid artery. There is heterogeneous, irregular atherosclerotic plaque noted in the right internal carotid artery. There is intimal thickening but no significant atherosclerotic plaque noted in the right external carotid artery. Antegrade flow is noted in the right vertebral artery. Left Extracranial There is homogeneous, smooth atherosclerotic plaque noted in the left common carotid artery. There is heterogeneous, irregular atherosclerotic plaque noted in the left internal carotid artery. The left internal carotid artery is occluded. There is intimal thickening but no significant atherosclerotic plaque noted in the left external carotid artery. Antegrade flow is noted in the left vertebral artery. Procedure Carotid Duplex 29708. This is a Carotid Duplex examination using B-mode, color flow and specral Doppler. The exam was diagnostic. Exam performed in department. Prelim faxed to Dr. Hanson's office. VL/Carotid Duplex Ultrasound Interpretation Summary Moderate (50-69%) stenosis right extracranial internal carotid. The left international account executive al carotid artery appears to be totally occluded. Patent and antegrade vertebrals bilaterally. Ordering Physician: Darrell Hanson Referring Physician: Darrell Hanson Performed By: Alek Pichardo RVT
== END | disposition home or self-care (01) ==
PROVIDERS: PCP Student in an Organized Health Care Education/Training Program; Referring Provider Surgery Vascular Surgery; Visit Provider Surgery Vascular Surgery
DX: I65.23 Occlusion and stenosis of bilateral carotid arteries (principal)
CPT/HCPCS: 93880

== ENCOUNTER → 2023-11-05 | Outpatient (CLI) | payer OTHER, SELFPAY ==
[2023-11-05 12:36] LABS: Absolute Lymphocyte Count 2.88 X10^3/uL (0.83-4.51); Basophil# 0.04 X10^3/uL; Basophil% 0.3 % (0-1); Eosinophil# 0.15 X10^3/uL; Eosinophils% 1.3 % (0-5); Hematocrit 50.4 % (37-47); Hemoglobin 15.8 g/dL (12.0-15.0); Lymphocyte # 2.88 X10^3/ul (0.83-4.51); Lymphocyte % 24.4 % (19-41); Mean Corp Hgb Conc 31.3 g/dL (32-36); Mean Corpuscular Hgb 33.2 pg (27.0-32.0); Mean Corpuscular Volume 105.9 fL (81-99); Mean Platelet Vol. 8.4 fl (6.2-12.0); Monocyte% 5.9 % (0-10); NRBC Flagged by Analyzer 0 % (0-5); Neutrophil # 7.99 X10^3/uL (2.7-7.7); Neutrophil % 67.8 % (47-70); Platelet Count 322 K/mm3 (150-450); RBC Distribution Width CV 13.3 % (11.6-14.6); Red Blood Count 4.76 M/mm3 (4.2-5.4); White Blood Count 11.8 K/mm3 (4.4-11.0)
[2023-11-05 13:01] LABS: ALB/GLOB Ratio 1.2 RATIO (0.9-2.4); AST(SGOT) 17 U/L (15-37); Alanine Aminotransfer ALT/SGPT 18 U/L (13-56); Albumin, Serum 3.7 g/dL (3.2-5.0); Alkaline Phosphatase 99 U/L (45-117); Anion Gap 7 (5-15); BUN 22 mg/dL (7-18); BUN/Creat Ratio 22.7 RATIO (10-20); Calcium,Total 9.5 mg/dL (8.5-10.1); Chloride 105 mmol/L (98-107); Creatinine, Serum 0.97 mg/dL (0.55-1.02); EST Glomerular Filtration Rate 62 mL/min (>60); Est Glom Filt Rate - Afr Amer 75 mL/min (>60); Glucose 213 mg/dL (74-106); Potassium 4.1 mmol/L (3.5-5.1); Protein, Total 6.7 g/dL (6.4-8.2); Sodium Level 138 mmol/L (136-145)
== END | disposition home or self-care (01) ==
LOC: MTLAB 10:24
PROVIDERS: PCP Student in an Organized Health Care Education/Training Program; Referring Provider Internal Medicine Rheumatology; Visit Provider Internal Medicine Rheumatology
DX: M06.4 Inflammatory polyarthropathy (principal); M79.7 Fibromyalgia; Z79.899 Other long term (current) drug therapy
CPT/HCPCS: 36415; 80053; 85025

== ENCOUNTER 2023-12-25 17:00 | Outpatient (RCR) | payer OTHER, SELFPAY ==
--- NOTE | 2023-12-24 10:04 | HP.PTEVAL_ITS ---
Patient's Visit Information Visit Information Visit Information: LUIS SIDDIQUI is a 58 year old F referred to Physical Therapy by Dr. Erica Lemons MD with a diagnosis of Neck pain. Date of Evaluation: 12/19/23 Physical Therapist: Blue Ricks DPT Visit Plan Frequency: 2x /Week Duration: 4 Weeks Plan: Start with IASTIM to B UT, levator scapulae. Manual traction and PA glides throughout cervical spine. Add in cervical retraction as tolerated Once pain has reduced add in cervical strengthening. If not improving consider MRI to rule out more sinister issues. Subjective Subjective: Pt. is here today for her initial evaluation with diagnosis of back and neck pain. Pt. reports having back pain for a number of years, but more recently in the last year or she developed more neck pain. She did see a surgeon whom wanted her to have an MRI. She has not heard from the surgeon to schedule this yet. Pt. reports weakness in BUEs, pain in neck and BUEs. She also reports having N/T as well as dropping objects. Pt. reports having a history of back issues as well. She reports that her pain has been progressively getting worse. Her pain management physician wishes her to have an MRI as well. 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 Pt. is having trouble sleeping as well. She would like to reduce symptoms in order to get back to all work and recreational activities without limitations. Pain Neck: Pain Intensity (Out of 10): 6 Pain Intensity Range: 4 and 10 RUE: Pain Intensity (Out of 10): 5 Pain Intensity Range: 3 and 9 LUE: Pain Intensity (Out of 10): 5 Pain Intensity Range: 4 and 9 Objective Objective: POSTURE: Pt. has increased fwrd head posture. Rounded shoulders as well. PALPATION: pt. has stiffness noted throughout spring testing of cervical spine. Pt. has tenderness at B UT and B levator scap. Tenderness as suboccipitals as well. NEURO: Normal DTR. Pt. does report decreased sensation at R lateral arm and proximal L arm. ROM: CERVICAL SPINE: flexion min loss NE, ext min loss mild increase NW, SB min loss mild increase NW bilat, rotation nil loss mild increase NW. Pt. has full B shoulder ROM without increase in symptoms. MMT: CERVICAL ISO: 5/5 throughout; R shoulder: flexion 4/5, abd 4/5, ext 4+/5, ER 4+/5, IR 5/5. L shoulder: flexion 5-/5, abd 5-/5, ext 5/5, ER 4+/5, IR 5/5. Performance Management Consultant strength: R 33#, L 41# R handed. Special Tests C/S Radiculapathy - Left [place]: Negative C/S Radiculapathy - Right [place]: Negative C/S Radiculapathy - Left Cervical distraction: Negative C/S Radiculapathy - Right Cervical distraction: Negative C/S Radiculapathy - Left Relief test: Negative C/S Radiculapathy - Right Relief test: Negative Cervical Sitting: Protrusion - Mechanical Response: No effect Cervical Sitting: Protrusion - Symptoms During Testing: No effect Cervical Sitting: Protrusion - Symptoms After Testing: No effect Cervical Sitting: Retraction - Mechanical Response: No effect Cervical Sitting: Retraction - Symptoms During Testing: Decreases Cervical Sitting: Retraction - Symptoms After Testing: No better Cervical Sitting: Sidebend Right - Mechanical Response: No effect Cervical Sitting: Sidebend Right - Symptoms During Testing: No effect Cervical Sitting: Sidebend Right - Symptoms After Testing: No effect Cervical Sitting: Sidebend Left - Mechanical Response: No effect Cervical Sitting: Sidebend Left - Symptoms During Testing: No effect Cervical Sitting: Sidebend Left - Symptoms After Testing: No effect Cervical Sitting: Rotation Right - Mechanical Response: No effect Cervical Sitting: Rotation Right - Symptoms During Testing: No effect Cervical Sitting: Rotation Right - Symptoms After Testing: No effect Cervical Sitting: Rotation Left - Mechanical Response: No effect Cervical Sitting: Rotation Left - Symptoms During Testing: No effect Cervical Sitting: Rotation Left - Symptoms After Testing: No effect Cervical Sitting: Flexion - Mechanical Response: No effect Cervical Sitting: Flexion - Symptoms During Testing: No effect Cervical Sitting: Flexion - Symptoms After Testing: No effect Balance/Special Test Scores Oswestry Neck Score: 30 Goals Goal 1:: LTG: Pt. to be I with HEP. Goal Time Frame: 4-6 Weeks Goal 2:: LTG: Pt. to reduce reduced radicular symptoms by 50% down bilateral UEs. Goal Time Frame: 4-6 Weeks Goal 3:: LTG: Pt. complete all work related activities with 0-3/10 pain in cervical spine. Goal Time Frame: 4-6 Weeks Goal 4:: LTG: Pt. to have full ROM of cervical spine without increase in symptoms. Goal Time Frame: 4-6 Weeks Rehabilitation Potential Physical Therapy Diagnosis: Pt. has signs and symptoms consistent with neck pain with R sided radiculopathy. Pt. does have some signs of neurogenic involvement with marked weakness, NT and radicular symptoms. Pt. would benefit from PT to attempt to increase cervical vertebral mobility and decrease symptoms Rehabilitation Potential: Fair Anticipated Interventions Patient/Client Instruction: Educate patient on: Condition, Plan of Care, Risk Factors and Benefits of Fitness Program For the Purpose of:: To improve decision making, To facilitate caregiver knowledge, To improve self management, To prevent re-injury, To improve ability to perform tasks related to life management and To improve tolerance to ADL's Therapeutic Exercise to Include: Strength training, Power training, Body mechanics, Postural training, Flexibilty training, Passive ROM and Active ROM For the Purpose of:: To decrease pain, To increase ROM, To improve nutrient delivery to tissue, To increase oxygenation perfusion, To improve muscle performance and motor function, To improve ability to perform ADL's, To improve health of tissue, To decrease soft tissue restriction and To increase flexibility/ROM Manual Therapy Techniques to Include: Mobilization and Soft tissue mobilization For the Purpose of:: To decrease pain, To decrease swelling/inflammation, To increase ROM, To improve nutrient delivery to tissue, To increase oxygenation perfusion and To improve muscle performance and motor function Ultrasound (thermal/non thermal): Yes For the Purpose of:: To decrease pain, To increase ROM, To improve nutrient delivery to tissue, To increase oxygenation perfusion, To improve muscle performance and motor function and To improve ability to perform ADL's Text: Thank you for the opportunity to evaluate your patient. For Medicare and Medicare HMO plans, please review the plan of care and approve it. It will need to be FAXED BACK to us at [phone] for Medicare purposes. For Medicare only, by signing this I certify the plan of care. Please let me know if there are questions or concerns regarding this plan of care. Physician Signature: Date:
== END 2023-12-25 19:00 | disposition home or self-care (01) ==
LOC: PT 17:00
PROVIDERS: PCP Student in an Organized Health Care Education/Training Program; Referring Provider Anesthesiology Pain Medicine; Visit Provider Anesthesiology Pain Medicine
DX: M54.2 Cervicalgia (principal)
CPT/HCPCS: 97140; 97161

== ENCOUNTER → 2024-01-20 | Outpatient (CLI) | payer OTHER, SELFPAY ==
--- NOTE | 2024-01-20 14:45 | MRI_ITS ---
STUDY: MRI CERVICAL SPINE WITHOUT CONTRAST REASON FOR EXAM: Female, 58 years old. NECK PAIN, RT ARM PAIN TECHNIQUE: Standardized fat and water weighted pulse sequences were obtained in the sagittal and axial planes. COMPARISON: X-ray of the cervical spine dated November 08, 2023 FINDINGS: Normal foramen magnum and brainstem-cervical cord junction. Normal craniovertebral junction. Normal anterior atlantoaxial articulation. Normal odontoid process. There is reversal of the normal cervical lordosis. Disc desiccation is present at all levels. No aggressive abnormalities present. No demonstrated acute fracture or compression deformity. C2-3: Normal endplates. Normal disc height and morphology. Normal central canal and intervertebral neural foramina. Mild to moderate left facet joint hypertrophy. C3-4: Severe disc space narrowing with a diffuse disc osteophyte complex causing mild compression on anterior aspect of the cord and mild central canal stenosis. Severe right foraminal stenosis with nerve root compression due to combined uncovertebral and facet joint hypertrophy. Normal left neural foramen. C4-5: Severe disc space narrowing with a diffuse disc osteophyte complex causing mild to moderate central canal stenosis and thecal sac impingement. Severe right foraminal stenosis with nerve root compression due to combined uncovertebral facet joint hypertrophy. Normal left neural foramen. C5-6: Normal endplates. Mild disc space narrowing without posterior bulging or herniation of the disc. Normal central canal and intervertebral neural foramina. C6-7: Normal endplates. Normal disc height and morphology. Normal central canal and intervertebral neural foramina. C7-T1: Normal endplates. Normal disc height and morphology. Normal central canal and intervertebral neural foramina. Normal cervical cord. There is no demonstrated cervical cord syrinx cavity. Normal visualized soft tissue structures. MRI/Spine Cervical (Routine) IMPRESSION: Multilevel degenerative changes, as described above. Electronically Signed: Rivera Rebolledo MD at 16:55 EDT Reading Location ID and State: [facility] / [place] , Service support ,
== END | disposition home or self-care (01) ==
PROVIDERS: PCP Student in an Organized Health Care Education/Training Program; Referring Provider Orthopaedic Surgery Orthopaedic Surgery of the Spine; Visit Provider Orthopaedic Surgery Orthopaedic Surgery of the Spine
DX: M48.02 Spinal stenosis, cervical region (principal)
CPT/HCPCS: 72141

== ENCOUNTER → 2024-02-25 | Outpatient (CLI) | payer OTHER, SELFPAY ==
[2024-02-25 12:15] LABS: Absolute Lymphocyte Count 4.23 X10^3/uL (0.83-4.51); Absolute Neutrophil Count 6.1 X10^3/uL (2.0-7.7); Basophil# 0.03 X10^3/uL; Basophil% 0.3 % (0-1); Eosinophil# 0.13 X10^3/uL; Eosinophils% 1.2 % (0-5); Hemoglobin 15.5 g/dL (12.0-15.0); Lymphocyte # 4.23 X10^3/ul (0.83-4.51); Lymphocyte % 38.4 % (19-41); Mean Corp Hgb Conc 32.3 g/dL (32-36); Mean Corpuscular Hgb 34.3 pg (27.0-32.0); Mean Corpuscular Volume 106.2 fL (81-99); Mean Platelet Vol. 8.4 fl (6.2-12.0); Monocyte# 0.47 X10^3/uL; Monocyte% 4.3 % (0-10); NRBC Flagged by Analyzer 0 % (0-5); Neutrophil % 55.3 % (47-70); Platelet Count 377 K/mm3 (150-450); RBC Distribution Width CV 13.5 % (11.6-14.6); RBC Distribution Width SD 53.9 fl (35.1-43.9); Red Blood Count 4.52 M/mm3 (4.2-5.4)
[2024-02-25 12:41] LABS: ALB/GLOB Ratio 1.2 RATIO (0.9-2.4); AST(SGOT) 10 U/L (15-37); Alanine Aminotransfer ALT/SGPT 22 U/L (13-56); Albumin, Serum 3.7 g/dL (3.2-5.0); Alkaline Phosphatase 100 U/L (45-117); Anion Gap 7 (5-15); BUN 17 mg/dL (7-18); BUN/Creat Ratio 19.6 RATIO (10-20); Calcium,Total 9.4 mg/dL (8.5-10.1); Chloride 102 mmol/L (98-107); Creatinine, Serum 0.87 mg/dL (0.55-1.02); EST Glomerular Filtration Rate 71 mL/min (>60); Est Glom Filt Rate - Afr Amer 86 mL/min (>60); Globulin 3.2 g/dL (2.2-4.2); Glucose 205 mg/dL (74-106); Potassium 2.9 mmol/L (3.5-5.1); Protein, Total 6.9 g/dL (6.4-8.2); Sodium Level 138 mmol/L (136-145)
== END | disposition home or self-care (01) ==
LOC: MTLAB 10:37
PROVIDERS: PCP Student in an Organized Health Care Education/Training Program; Referring Provider Internal Medicine Rheumatology; Visit Provider Internal Medicine Rheumatology
DX: M06.4 Inflammatory polyarthropathy (principal); Z79.899 Other long term (current) drug therapy; M79.7 Fibromyalgia
CPT/HCPCS: 36415; 80053; 85025

== ENCOUNTER → 2024-04-24 | Outpatient (CLI) | payer OTHER, SELFPAY ==
[2024-04-24 12:08] LABS: Absolute Lymphocyte Count 2.82 X10^3/uL (0.83-4.51); Absolute Neutrophil Count 4.6 X10^3/uL (2.0-7.7); Basophil# 0.05 X10^3/uL; Basophil% 0.6 % (0-1); Eosinophil# 0.29 X10^3/uL; Eosinophils% 3.5 % (0-5); Hematocrit 48.6 % (37-47); Hemoglobin 15.3 g/dL (12.0-15.0); Lymphocyte # 2.82 X10^3/ul (0.83-4.51); Mean Corp Hgb Conc 31.5 g/dL (32-36); Mean Corpuscular Hgb 34.5 pg (27.0-32.0); Mean Corpuscular Volume 109.5 fL (81-99); Mean Platelet Vol. 8.5 fl (6.2-12.0); Monocyte# 0.51 X10^3/uL; Monocyte% 6.2 % (0-10); NRBC Flagged by Analyzer 0 % (0-5); Neutrophil # 4.58 X10^3/uL (2.7-7.7); Neutrophil % 55.2 % (47-70); Platelet Count 396 K/mm3 (150-450); RBC Distribution Width CV 13.6 % (11.6-14.6); RBC Distribution Width SD 55.3 fl (35.1-43.9); Red Blood Count 4.44 M/mm3 (4.2-5.4); White Blood Count 8.3 K/mm3 (4.4-11.0)
[2024-04-24 12:34] LABS: ALB/GLOB Ratio 1.1 RATIO (0.9-2.4); AST(SGOT) 9 U/L (15-37); Alanine Aminotransfer ALT/SGPT 15 U/L (13-56); Albumin, Serum 3.7 g/dL (3.2-5.0); Alkaline Phosphatase 110 U/L (45-117); Anion Gap 6 (5-15); BUN 14 mg/dL (7-18); BUN/Creat Ratio 19.5 RATIO (10-20); Calcium,Total 9.9 mg/dL (8.5-10.1); Chloride 104 mmol/L (98-107); Creatinine, Serum 0.72 mg/dL (0.55-1.02); EST Glomerular Filtration Rate 88 mL/min (>60); Est Glom Filt Rate - Afr Amer 106 mL/min (>60); Globulin 3.5 g/dL (2.2-4.2); Glucose 178 mg/dL (74-106); Potassium 4.1 mmol/L (3.5-5.1); Protein, Total 7.2 g/dL (6.4-8.2); Sodium Level 138 mmol/L (136-145)
== END | disposition home or self-care (01) ==
PROVIDERS: PCP Student in an Organized Health Care Education/Training Program; Referring Provider Internal Medicine Rheumatology; Visit Provider Internal Medicine Rheumatology
DX: M06.4 Inflammatory polyarthropathy (principal); Z79.899 Other long term (current) drug therapy; M79.7 Fibromyalgia
CPT/HCPCS: 36415; 80053; 85025

== ENCOUNTER 2024-07-16 14:48 | Outpatient (RCR) | payer OTHER, SELFPAY ==
--- NOTE | 2024-07-16 16:20 | HP.PTEVAL ---
Patient's Visit Information Visit Information Visit Information: LUIS SIDDIQUI is a 59 year old F referred to Physical Therapy by Dr. Héctor Luke DO with a diagnosis of STROKE WITH RESIDUAL EFFECTS ,RIGHT FOOT DROP. Date of Evaluation: 07/16/24 Physical Therapist: Khoa Granda, PT, Cert MDT, OCS Visit Plan Frequency: 2x /Week Duration: 4 Weeks Plan: PT INTERVENTIONS PROGRESSIVE BALANCE TRAINING ,STRENGTHENING EX'S RLE QUADS/HAMS/HIP/ANKLE ,FUNCTIONAL STRENGTHENING AND ENDURANCE Subjective Subjective: This female presents to physical therapy with CVA with right side weakness. Patient had CVA ~ 2 weeks ago . Patient developed SOB and noticed foot drop. Patient admitted 07/06/24 to [facility] MRI /CT SCAN had small infarct. Patient was hospitalized for 2 days on 07/07/24 . Patient residual weakness right side most noticeable foot drop.Patient major issue weakness right and no falls but tripping on right foot. Patient has difficulty descending stairs. Patient tailor with ramp ,walk in shower. Patient able to dress and bath self. Patient . cooking and cleaning but has decrease stamina.Patient is don't working.Patient condition affects QOL and RTW. Patient goals to get stronger and return to work. 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 SOCIAL: Pain Right Hip: Pain Intensity (Out of 10): 8 Pain Intensity Range: 10 Comment: walking Objective Objective: POSTURE: mild forward posture GAIT: reciprocal pattern decrease stance time RLE slightly unsteady FLEXABILITY: hamstrings miin tight STAIRS: one step with rail MMT:( peak force) quads 12.1 ,hamstrings 11.8 ,hip flexion 14.8 ,ankle dorsiflexion 12.1 Balance/Special Test Scores Functional Gait Assessment Score: 9 % Disability: 70.0000 CATSIB Score (Max score 120 seconds): 44 Lower Extremity Functional Score: 20 Goals Goal 1:: Patient to be I with HEP for balance and strengthening Goal Time Frame: 4-6 Weeks Goal 2:: Patient to improve CTSIBE by 5-10 points to improve balance Goal Time Frame: 4-6 Weeks Goal 3:: Patient to improve LFES score by 5 points to improve QOL Goal Time Frame: 4-6 Weeks Goal 4:: Patient to improve peak force quads/hams/hip ankle by 5-10# to improve gait Goal Time Frame: 4-6 Weeks Goal 5:: Patient to improve functional gait assessment score by 5 -10 points to decrease risk of falls. Goal Time Frame: 4-6 Weeks Goal 6:: Patient to improve normal ari with gait Goal Time Frame: 4-6 Weeks Rehabilitation Potential Physical Therapy Diagnosis: This patient had CVA affecting right side weakness with impairments weakness right lower leg with impaired CATSIBE and functional gait assessment thus benefit from skilled PT Rehabilitation Potential: Good Anticipated Interventions Patient/Client Instruction: Educate patient on: Condition and Plan of Care For the Purpose of:: To decrease pain, To improve muscle performance and motor function, To improve ability to perform ADL's, To increase tolerance to activity/condition/position, To improve ability of physical actions for home/community/work/leisure, To improve health of tissue, To decrease soft tissue restriction, To increase flexibility/ROM, To improve endurance, To improve balance and To improve tolerance to ADL's Therapeutic Exercise to Include: Strength training, Endurance training, Balance training, Coordination and Gait and locomotor training Comment: QUADS/HAMS/HIP AND ANKLE For the Purpose of:: To improve muscle performance and motor function, To improve ability to perform ADL's, To increase tolerance to activity/condition/position, To improve ability of physical actions for home/community/work/leisure, To improve health of tissue, To decrease soft tissue restriction, To increase flexibility/ROM, To improve endurance and To improve balance Text: Thank you for the opportunity to evaluate your patient. For Medicare and Medicare HMO plans, please review the plan of care and approve it. It will need to be FAXED BACK to us at [phone] for Medicare purposes. For Medicare only, by signing this I certify the plan of care. Please let me know if there are questions or concerns regarding this plan of care. Physician Signature: Date:
--- NOTE | 2024-12-09 08:53 | HP.PTDCNRP_ITS ---
Patient Information Patient Information: LUIS SIDDIQUI was seen in my office for initial evaluation on 07/16/24. The following Plan of Care was established for this patient: POC Established Initial Frequency: 2x /Week Initial Duration: 4 Weeks Anticipated Interventions Patient/Client Instruction: Educate patient on: Condition and Plan of Care For the Purpose of:: To decrease pain, To improve muscle performance and motor function, To improve ability to perform ADL's, To increase tolerance to activity/condition/position, To improve ability of physical actions for home /community/work/leisure, To improve health of tissue, To decrease soft tissue restriction, To increase flexibility/ROM, To improve endurance, To improve balance and To improve tolerance to ADL's Therapeutic Exercise to Include: Strength training, Endurance training, Balance training, Coordination and Gait and locomotor training For the Purpose of:: To improve muscle performance and motor function, To improve ability to perform ADL's, To increase tolerance to activity/condition/position, To improve ability of physical actions for home/community/work/leisure, To improve health of tissue, To decrease soft tissue restriction, To increase flexibility/ROM, To improve endurance and To improve balance Last Seen Last Seen: This patient was last seen in our office . Pertinent comments regarding their Physical therapy will appear below: Patient was seen for PT for CVA for initial PT eval. At this point I will be discontinuing this patient from physical therapy. I would be happy to see this patient again in the future if found appropriate by the physician. Thank you! Khoa Granda, PT, Cert MDT, OCS Balance/Gait/Functional tests Balance/Special Test Scores Functional Gait Assessment Score: 9 % Disability: 70.0000 CATSIB Score (Max score 120 seconds): 44 Lower Extremity Functional Score: 20
== END 2024-07-16 19:00 | disposition home or self-care (01) ==
LOC: PT 14:48
PROVIDERS: PCP Student in an Organized Health Care Education/Training Program; Referring Provider Student in an Organized Health Care Education/Training Program; Visit Provider Student in an Organized Health Care Education/Training Program
DX: M21.371 Foot drop, right foot (principal); I69.30 Unspecified sequelae of cerebral infarction
CPT/HCPCS: 97110; 97162

== ENCOUNTER → 2024-07-24 | Outpatient (CLI) | payer OTHER, SELFPAY ==
[2024-07-24 15:24] LABS: Absolute Lymphocyte Count 2.37 X10^3/uL (0.83-4.51); Absolute Neutrophil Count 3.7 X10^3/uL (2.0-7.7); Basophil# 0.04 X10^3/uL; Basophil% 0.6 % (0-1); Eosinophil# 0.17 X10^3/uL; Eosinophils% 2.5 % (0-5); Hematocrit 49.1 % (37-47); Hemoglobin 15.6 g/dL (12.0-15.0); Lymphocyte # 2.37 X10^3/ul (0.83-4.51); Lymphocyte % 34.6 % (19-41); Mean Corp Hgb Conc 31.8 g/dL (32-36); Mean Corpuscular Hgb 33.7 pg (27.0-32.0); Mean Platelet Vol. 8.7 fl (6.2-12.0); Monocyte# 0.51 X10^3/uL; Monocyte% 7.4 % (0-10); NRBC Flagged by Analyzer 0 % (0-5); Neutrophil # 3.66 X10^3/uL (2.7-7.7); Neutrophil % 53.4 % (47-70); Platelet Count 300 K/mm3 (150-450); RBC Distribution Width SD 54.7 fl (35.1-43.9); Red Blood Count 4.63 M/mm3 (4.2-5.4); White Blood Count 6.9 K/mm3 (4.4-11.0)
[2024-07-24 16:09] LABS: ALB/GLOB Ratio 1.8 RATIO (0.9-2.4); AST(SGOT) 16 U/L (<=31); Alanine Aminotransfer ALT/SGPT 15 U/L (<=34); Albumin, Serum 4.3 g/dL (3.4-4.8); Alkaline Phosphatase 100 U/L (35-104); Anion Gap 13 (5-15); BUN 13 mg/dL (4-19); BUN/Creat Ratio 17.6 RATIO (10-20); Calcium,Total 9.6 mg/dL (7.6-11.0); Carbon Dioxide 23.7 mmol/L (21.0-32.0); Chloride 102 mmol/L (98-108); Creatinine, Serum 0.75 mg/dL (0.70-1.20); EST Glomerular Filtration Rate 91 (>60); Globulin 2.4 g/dL (2.2-4.2); Glucose 162 mg/dL (70-99); Potassium 4.2 mmol/L (3.3-5.1); Protein, Total 6.7 g/dL (5.9-8.4); Sodium Level 139 mmol/L (133-145); Total Bilirubin 0.25 mg/dL (0.00-1.30)
== END | disposition home or self-care (01) ==
LOC: MTLAB 11:27
PROVIDERS: PCP Student in an Organized Health Care Education/Training Program; Referring Provider Internal Medicine Rheumatology; Visit Provider Internal Medicine Rheumatology
DX: M06.4 Inflammatory polyarthropathy (principal); Z79.899 Other long term (current) drug therapy; M79.7 Fibromyalgia
CPT/HCPCS: 36415; 80053; 85025

== ENCOUNTER → 2024-10-13 | Outpatient (CLI) | payer OTHER, SELFPAY ==
[2024-10-13 12:43] LABS: Hematocrit 48.0 % (37-47); Hemoglobin 15.2 g/dL (12.0-15.0); Immature Granulocytes Count 0.060 X10^3/uL (0.0-0.0); Mean Corp Hgb Conc 31.7 g/dL (32-36); Mean Corpuscular Volume 109.6 fL (81-99); Mean Platelet Vol. 8.5 fl (6.2-12.0); NRBC Flagged by Analyzer 0 % (0-5); Platelet Count 340 K/mm3 (150-450); RBC Distribution Width CV 13.4 % (11.6-14.6); RBC Distribution Width SD 54.8 fl (35.1-43.9); Red Blood Count 4.38 M/mm3 (4.2-5.4); White Blood Count 6.9 K/mm3 (4.4-11.0)
[2024-10-13 14:01] LABS: AST(SGOT) 17 U/L (<=31); Alanine Aminotransfer ALT/SGPT 13 U/L (<=34); Albumin, Serum 4.2 g/dL (3.4-4.8); Alkaline Phosphatase 113 U/L (35-104); Anion Gap 11 (5-15); BUN 14 mg/dL (4-19); BUN/Creat Ratio 21.0 RATIO (10-20); Calcium,Total 9.1 mg/dL (7.6-11.0); Carbon Dioxide 24.5 mmol/L (21.0-32.0); Chloride 105 mmol/L (98-108); Globulin 2.2 g/dL (2.2-4.2); Glucose 142 mg/dL (70-99); Potassium 4.2 mmol/L (3.3-5.1)
== END | disposition home or self-care (01) ==
LOC: MTLAB 10:16
PROVIDERS: PCP Student in an Organized Health Care Education/Training Program; Referring Provider Internal Medicine Rheumatology; Visit Provider Internal Medicine Rheumatology
DX: M06.4 Inflammatory polyarthropathy (principal); Z79.899 Other long term (current) drug therapy; M79.7 Fibromyalgia
CPT/HCPCS: 36415; 80053; 85025

== ENCOUNTER → 2025-01-15 | Outpatient (CLI) | payer OTHER, SELFPAY ==
[2025-01-15 18:52] LABS: AST(SGOT) 15 U/L (<=31); Alanine Aminotransfer ALT/SGPT 11 U/L (<=34); Albumin, Serum 4.2 g/dL (3.4-4.8); Alkaline Phosphatase 105 U/L (35-104); Anion Gap 10 (5-15); BUN 10 mg/dL (4-19); BUN/Creat Ratio 12.3 RATIO (10-20); Calcium,Total 9.5 mg/dL (7.6-11.0); Carbon Dioxide 25.2 mmol/L (21.0-32.0); Chloride 107 mmol/L (98-108); Globulin 2.3 g/dL (2.2-4.2); Glucose 161 mg/dL (70-99); Potassium 4.2 mmol/L (3.3-5.1)
[2025-01-15 18:56] LABS: Hematocrit 46.3 % (37-47); Hemoglobin 14.7 g/dL (12.0-15.0); Immature Granulocytes Count 0.050 X10^3/uL (0.0-0.0); Mean Corp Hgb Conc 31.7 g/dL (32-36); Mean Corpuscular Volume 108.4 fL (81-99); Mean Platelet Vol. 8.8 fl (6.2-12.0); NRBC Flagged by Analyzer 0 % (0-5); Platelet Count 320 K/mm3 (150-450); RBC Distribution Width CV 13.6 % (11.6-14.6); RBC Distribution Width SD 54.5 fl (35.1-43.9); Red Blood Count 4.27 M/mm3 (4.2-5.4); White Blood Count 7.0 K/mm3 (4.4-11.0)
== END | disposition home or self-care (01) ==
LOC: MTLAB 13:39
PROVIDERS: PCP Student in an Organized Health Care Education/Training Program; Referring Provider Internal Medicine Rheumatology; Visit Provider Internal Medicine Rheumatology
DX: M06.4 Inflammatory polyarthropathy (principal); Z79.899 Other long term (current) drug therapy; M79.7 Fibromyalgia
CPT/HCPCS: 36415; 80053; 85025